=== PATIENT | female | born 1995 | race Hispanic/Latino ===

== ENCOUNTER 2021-09-17 14:50 | Emergency (ER) | payer OTHER ==
--- NOTE | 2021-09-17 15:36 | Emergency Department Report ---
ED General Adult HPI - General Chief complaint: Allergic Reaction Stated complaint: allergic reaction Time Seen by Provider: 09/17/21 14:59 Source: patient Mode of arrival: Ambulatory Limitations: No Limitations - History of Present Illness Initial comments: 26-year-old female patient presents with complaints of diffuse itchy hives since 09/09/2021. Patient denies changes in any of her products, new foods, or new medications/supplements. She reports when the hives began she took Benadryl 4 times a day and they do seem to resolve after about a week. She reports on Tuesday, the hives suddenly returned and are worse. The hives were initially on her neck and torso, but began to move to her face and lower extremities. 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 She states her symptoms improved and they discharged home with prednisone 10 mg and cetirizine. Patient states she took the cetirizine and prednisone prior to morning her next flight this morning and her reaction worsen. She denies any dysphagia, shortness of breath, cough, or wheezing. No other past medical history per patient. - Related Data Home Medications Medication Instructions Recorded Confirmed Last Taken No Known Home Medications [No 09/17/21 09/17/21 Unknown Reported Home Medications] Allergies Allergy/AdvReac Type Severity Reaction Status Date / Time No Known Allergies Allergy Verified 09/17/21 15:21 ED Review of Systems ROS: Stated complaint: allergic reaction Other details as noted in HPI Constitutional: denies: chills, diaphoresis, fever, malaise, weakness Respiratory: denies: shortness of breath Cardiovascular: denies: chest pain Musculoskeletal: denies: joint swelling, arthralgia Skin: rash Neurological: denies: headache, numbness, paresthesias ED Past Medical Hx - Medications Home Medications: Home Medications Medication Instructions Recorded Confirmed Last Taken Type No Known Home Medications [No 09/17/21 09/17/21 Unknown History Reported Home Medications] ED Physical Exam - General Limitations: No Limitations General appearance: alert, in no apparent distress - Head Head exam: Present: atraumatic, normocephalic - Eye Eye exam: Present: normal appearance. Absent: scleral icterus - Respiratory Respiratory exam: Present: normal lung sounds bilaterally. Absent: respiratory distress - Cardiovascular Cardiovascular Exam: Present: regular rate, normal rhythm. Absent: systolic murmur, diastolic murmur, rubs, gallop - Extremities Exam Extremities exam: Present: full ROM - Back Exam Back exam: Present: normal inspection - Neurological Exam Neurological exam: Present: alert, oriented X3, normal gait - Psychiatric Psychiatric exam: Present: normal affect, normal mood - Skin Skin exam: Present: warm, dry, intact, urticaria (Diffuse large urticarial rashes spread out on front and back of torso, neck, lower and upper extremities, and mildly on the face; no cellulitic changes or drainage noted) ED Course Vital Signs 09/17/21 14:53 Temperature 97.8 F Pulse Rate 100 H Respiratory 16 Rate Blood Pressure 128/77 O2 Sat by Pulse 100 Oximetry ED Medical Decision Making - Medical Decision Making 26-year-old female patient presents with complaints of diffuse itchy hives since 09/09/2021. Patient denies changes in any of her products, new foods, or new medications/supplements. She reports when the hives began she took Benadryl 4 times a day and they do seem to resolve after about a week. She reports on Tuesday, the hives suddenly returned and are worse. The hives were initially on her neck and torso, but began to move to her face and lower extremities. 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 She states her symptoms improved and they discharged home with prednisone 10 mg and cetirizine. Patient states she took the cetirizine and prednisone prior to morning her next flight this morning and her reaction worsen. She denies any dysphagia, shortness of breath, cough, or wheezing. No other past medical history per patient. Critical care attestation.: If time is entered above; I have spent that time in minutes in the direct care of this critically ill patient, excluding procedure time. ED Disposition Condition: Stable
[2021-09-17] MEDS ORDERED: dexAMETHasone 20 MG/5 ML VIAL IV ONE (16:17)
[2021-09-17] MEDS ORDERED: FAMOTIDINE 20 MG/2 ML INJ IV ONE (16:17)
[2021-09-17] MEDS ORDERED: diphenhydrAMINE 50 MG/ML VIAL IV ONE (16:17)
[2021-09-17 18:24] VITALS: BP 123/69
== END 2021-09-17 18:24 | disposition home or self-care (01) ==
LOC: ED 14:50
DX: T78.49XA Other allergy, initial encounter (principal); X58.XXXA Exposure to other specified factors, initial encounter
CPT/HCPCS: 96374; 96375; 99282; J1100; J1200; J3490

== ENCOUNTER 2021-09-18 06:43 | Emergency (ER) | payer OTHER ==
[2021-09-18 07:03] VITALS: BP 111/69
== END 2021-09-18 06:55 | disposition left against medical advice (07) ==
LOC: ED 06:43
DX: T78.40XA Allergy, unspecified, initial encounter (principal); Z53.21 Procedure and treatment not carried out due to patient leaving prior to being seen by health care provider; X58.XXXA Exposure to other specified factors, initial encounter